=== PATIENT | male | born 1955 | race Caucasian/White ===

== ENCOUNTER → 2022-02-10 | Outpatient (CLI) | payer MEDICARE, OTHER, SELFPAY ==
--- NOTE | 2022-02-10 18:18 | MRI_ITS ---
INDICATION: LOCALIZED SWELLING, MASS OR LUMP OF RIGHT UPPER EXTREMITY EXAMINATION: MRI - MR Humerus WO/W Contrast TECHNIQUE: Multiplanar and multisequence MR images were performed of the . IV Contrast Dosage and Agent: None. COMPARISON: None. FINDINGS: JOINTS: There is moderate fluid extending into the subdeltoid bursa through a complete rotator cuff tear. This is best appreciated on image 19 of series #11. MUSCLES: In the area of clinical concern subjacent to the skin marker there is an intramuscular lipoma within the medial aspect of the triceps. This is isointense to adipose tissue on all pulse sequences and demonstrates no evidence of abnormal contrast enhancement. This measures 1.8 cm transverse by 1.5 cm AP by 2.8 cm craniocaudal. BONE: No fracture or abnormal bone marrow signal. OTHER SOFT TISSUES: Unremarkable. No solid or cystic mass. MRI/Upper Ext No Joint W/WO Cont IMPRESSION: Intramuscular lipoma within the triceps. Complete rotator cuff tear with moderate fluid extending into the subacromial subdeltoid bursa. Electronically Signed: Darren Nagel MD, [place] at 20:16 EST ,
[2022-02-10 18:31] LABS: CREATININE FINGERSTICK < 0.9 mg/dL (0.70-1.30); EGFR FINGERSTICK > 60.0000 mL/min (>60)
== END | disposition home or self-care (01) ==
PROVIDERS: PCP Student in an Organized Health Care Education/Training Program; Referring Provider Student in an Organized Health Care Education/Training Program; Visit Provider Student in an Organized Health Care Education/Training Program
DX: R22.31 Localized swelling, mass and lump, right upper limb (principal)
CPT/HCPCS: 73220; A9575